=== PATIENT | male | born 1970 | race Caucasian/White ===

== ENCOUNTER → 2023-07-30 08:59 | Outpatient (REF) | payer OTHER, SELFPAY | LOC: MRI 3T 08:59 | PROVIDERS: ATTENDING PHYSICIAN Internal Medicine; FAMILY PHYSICIAN Family Medicine | DX: K63.3 Ulcer of intestine (principal); K52.9 Noninfective gastroenteritis and colitis, unspecified | CPT/HCPCS: 72197; 74183; A9575 ==

== ENCOUNTER → 2023-10-12 | Outpatient (REF) | payer OTHER, SELFPAY | LOC: DHSLP | PROVIDERS: ATTENDING PHYSICIAN Internal Medicine; FAMILY PHYSICIAN Family Medicine | DX: G47.30 Sleep apnea, unspecified (principal); R06.83 Snoring | CPT/HCPCS: 95800 ==

== ENCOUNTER 2024-06-13 09:54 | Outpatient (RCR) | payer OTHER, SELFPAY ==
[2024-06-06 14:21] VITALS: BP 121/59
[2024-06-06] MEDS: INJECTAFER 265 MG IV (14:42)
[2024-06-06 16:09] VITALS: BP 124/78
[2024-06-13] MEDS: INJECTAFER 265 MG IV (10:22)
[2024-06-13 10:35] VITALS: BP 141/84
[2024-06-13 11:35] VITALS: BP 137/90
== END 2024-06-16 15:56 | disposition home or self-care (01) ==
LOC: OID 09:54
PROVIDERS: ATTENDING PHYSICIAN Internal Medicine; FAMILY PHYSICIAN Family Medicine
DX: D50.0 Iron deficiency anemia secondary to blood loss (chronic) (principal); K50.018 Crohn's disease of small intestine with other complication
CPT/HCPCS: 96365; J1439

== ENCOUNTER 2024-07-11 06:31 | Outpatient (RCR) | payer OTHER, SELFPAY | END 2024-07-11 23:59 | disposition home or self-care (01) | LOC: RPT 06:31 | PROVIDERS: ATTENDING PHYSICIAN Internal Medicine; FAMILY PHYSICIAN Family Medicine | DX: R15.9 Full incontinence of feces (principal); Z73.6 Limitation of activities due to disability; R15.2 Fecal urgency; K50.90 Crohn's disease, unspecified, without complications | CPT/HCPCS: 97163; 97530 ==

== ENCOUNTER 2024-08-11 17:05 | Outpatient (RCR) | payer OTHER, SELFPAY | END 2024-08-11 23:59 | disposition home or self-care (01) | LOC: RPT 17:05 | PROVIDERS: ATTENDING PHYSICIAN Internal Medicine; FAMILY PHYSICIAN Family Medicine | DX: R15.9 Full incontinence of feces (principal); Z73.6 Limitation of activities due to disability; R15.2 Fecal urgency; K50.90 Crohn's disease, unspecified, without complications | CPT/HCPCS: 97110; 97112; 97140; 97530 ==

== ENCOUNTER 2024-09-15 17:57 | Outpatient (RCR) | payer OTHER, SELFPAY | END 2024-09-15 23:59 | disposition home or self-care (01) | LOC: RPT 17:57 | PROVIDERS: ATTENDING PHYSICIAN Internal Medicine; FAMILY PHYSICIAN Family Medicine | DX: R15.9 Full incontinence of feces (principal); Z73.6 Limitation of activities due to disability; R15.2 Fecal urgency; K50.90 Crohn's disease, unspecified, without complications | CPT/HCPCS: 97014; 97110; 97112; 97530 ==

== ENCOUNTER 2024-10-08 18:18 | Outpatient (RCR) | payer OTHER, SELFPAY | END 2024-10-14 23:59 | disposition home or self-care (01) | LOC: RPT 18:18 | PROVIDERS: ATTENDING PHYSICIAN Internal Medicine; FAMILY PHYSICIAN Family Medicine | DX: R15.9 Full incontinence of feces (principal); Z73.6 Limitation of activities due to disability; R15.2 Fecal urgency; K50.90 Crohn's disease, unspecified, without complications | CPT/HCPCS: 97014; 97110; 97112; 97140; 97530 ==

== ENCOUNTER 2024-11-12 17:17 | Outpatient (RCR) | payer OTHER, SELFPAY | END 2024-11-12 23:59 | disposition home or self-care (01) | LOC: RPT 17:17 | PROVIDERS: ATTENDING PHYSICIAN Internal Medicine; FAMILY PHYSICIAN Family Medicine | DX: R15.9 Full incontinence of feces (principal); Z73.6 Limitation of activities due to disability; R15.2 Fecal urgency; K50.90 Crohn's disease, unspecified, without complications | CPT/HCPCS: 97014; 97110; 97112; 97530 ==

== ENCOUNTER 2024-12-09 06:30 | Day surgery (SDC) | payer OTHER, SELFPAY | END 2024-12-09 12:44 | disposition home or self-care (01) | LOC: GI 06:30 | PROVIDERS: ATTENDING PHYSICIAN Internal Medicine | DX: K57.30 Diverticulosis of large intestine without perforation or abscess without bleeding (principal); K64.4 Residual hemorrhoidal skin tags; K50.00 Crohn's disease of small intestine without complications; K63.89 Other specified diseases of intestine; K62.89 Other specified diseases of anus and rectum | CPT/HCPCS: 45380; 88305 ==

== ENCOUNTER 2024-12-15 17:00 | Outpatient (RCR) | payer OTHER, SELFPAY | END 2024-12-15 23:59 | disposition home or self-care (01) | LOC: RPT 17:00 | PROVIDERS: ATTENDING PHYSICIAN Internal Medicine; FAMILY PHYSICIAN Family Medicine | DX: R15.9 Full incontinence of feces (principal); Z73.6 Limitation of activities due to disability; R15.2 Fecal urgency; K50.90 Crohn's disease, unspecified, without complications | CPT/HCPCS: 97110; 97112; 97530 ==